=== PATIENT | female | born 1990 | race Caucasian/White ===

== ENCOUNTER 2024-01-26 21:24 | Emergency (ER) | payer BC, SELFPAY ==
[2024-01-26 21:32] VITALS: BP 111/76; PULSE 124; TEMP 36.9; O2SAT 96; BMI 47.9
--- NOTE | 2024-01-26 21:58 | ED.GENADULT ---
HPI - General Adult General Chief complaint: Fever Stated complaint: fever and high heart rate Time Seen by Provider: 01/26/24 21:57 History of Present Illness HPI narrative: Patient here with fever starting yesterday morning and higher heart rate. Coughing, congestion. Taking scheduled Tylenol. 34 weeks ,m 33-year-old woman presenting to the emergency department . Had been sick over the last week with head cold symptoms. Yesterday started to feel chills and measured temperature yesterday apparently to 99. Body aches. When she noticed today more was of persistently high heart rate 130s and that just has not drop below 100. This probably has her most concern. She did take acetaminophen about 2 hours prior to arrival here. 1000 mg. She is 34 weeks . Is not having any belly pain. She is not short of breath but is congested in the nasopharynx. No chest pain. No pleuritic pain. No dysuria. Does not have a history of tachycardia. Related Data Home Medications Medication Instructions Recorded Confirmed sertraline 100 mg tablet (Zoloft) 100 mg PO DAILY 01/26/24 02/04/24 cetirizine 10 mg capsule (Allergy 10 mg PO DAILY PRN 02/04/24 02/04/24 Relief (cetirizine)) docosahexaenoic acid 300 mg PO DAILY 02/04/24 02/04/24 Previous Rx's Medication Instructions Recorded acetaminophen 500 mg tablet 1,000 mg (2 x 500 mg) PO Q6H PRN 02/07/24 pain/fever #30 tabs docusate sodium 100 mg capsule 100 mg PO DAILY #30 caps 02/07/24 ibuprofen 600 mg tablet 600 mg PO Q6H PRN #30 tabs 02/07/24 labetalol 100 mg tablet 100 mg PO BID #60 tabs 02/07/24 Allergies Allergy/AdvReac Type Severity Reaction Status Date / Time No Known Drug Allergies Allergy Verified 02/05/24 04:43 Review of Systems Status of ROS: Reports: 6 or more systems reviewed and unremarkable except as noted in History and below [facility] Medical History (Updated 02/10/24 @ 00:02 by Mary Galan) Influenza A ?J10.1 - Influenza due to other identified influenza virus with other respiratory manifestations (ICD-10) Social History What is your current living situation?: I presently have a place to live Problems where you live: no known problems In the past 12 months, utilities in danger of being shut off: no In past 12 months, lack of transportation kept you from medical appts, meetings, work, or getting things needed for daily living: no In the past 12 mos, have been you worried that your food would run out before you had money to buy more?: never true In the past 12 mos, the food you bought just didn't last and you didn't have money to buy more?: never true Smoking Status: Never smoker How often do you have a drink containing alcohol: never AUDIT-C Alcohol total score: 0 How often does anyone, including family, friends and others, physically hurt you: never How often does anyone, including family, friends and others, insult or talk down to you: never How often does anyone, including family, friends and others, threaten you with harm: never How often does anyone, including family, friends and others, scream or curse at you: never Exam Narrative: Exam Narrative: Pleasant. Of good energy. Sounds rather congested in the nasopharynx. Cranial nerves 2-12 intact. Lungs are clear. Heartrate is elevated. Regular rhythm. Skin is warm and dry. Oropharynx is moist. Moving all extremities without difficulty. She is well-perfused. Abdomen is appropriately gravid soft and nontender Const: Vital Signs, click to edit/add: Vital Signs - 24 hr 01/26/24 21:32 01/26/24 23:49 Temperature 98.5 F Pulse Rate [Pulse Oximeter] 124 H 94 Respiratory Rate 16 Blood Pressure [Ri ght Upper Arm] 111/76 Pulse Oximetry 96 98 Oxygen Delivery Me thod Room Air Room Air Documenting provider has reviewed patient's vital signs: yes Course Vital Signs Vital signs: Initial Vital Signs Temperature 98.5 F 01/26/24 21:32 Temperature Source Temporal Artery Scan 01/26/24 21:32 Pulse Rate 124 H 01/26/24 21:32 Pulse Rhythm Regular 01/26/24 21:32 Blood Pressure 111/76 01/26/24 21:32 Blood Pressure Mean 87 01/26/24 21:32 Blood Pressure Position Sitting 01/26/24 21:32 Pulse Oximetry 96 01/26/24 21:32 Oxygen Delivery Method Room Air 01/26/24 21:32 Vital Signs Temperature 98.5 F 01/26/24 21:32 Pulse Rate 124 H 01/26/24 21:32 Blood Pressure 111/76 01/26/24 21:32 Pulse Oximetry 96 01/26/24 21:32 Oxygen Delivery Method Room Air 01/26/24 21:32 Temperature 98.5 F 01/26/24 21:32 Pulse Rate 94 01/26/24 23:49 Respiratory Rate 16 01/26/24 23:49 Blood Pressure 111/76 01/26/24 21:32 Pulse Oximetry 98 01/26/24 23:49 Oxygen Delivery Method Room Air 01/26/24 23:49 Medications Administered Medications: Discontinued Medications Generic Name Dose Route Start Last Admin Trade Name Freq PRN Reason Stop Dose Admin Sodium Chloride 1,000 mls @ 1,000 mls/hr 01/26/24 22:08 01/26/24 23:12 0.9 % Sodium Chloride 1000 Ml IV 01/26/24 23:07 Infused .Q1H ONE Infusion Medical Decision Making MDM Narrative Medical decision making narrative: I would suspect influenza given community prevalence. Like to provide IV hydration. Will screen with triple swab. Check urinalysis. Hopefully heart rate comes down a little bit. Does not appear to have any respiratory distress. Not fast enough probably to be a supraventricular tachycardia. I suspect this is more illness response. Will check EKG. IV placed. Written for L of normal saline EKG as below confirms normal sinus Indeed positive for influenza A. Urine looks normal for . Looks generally well on reassessment. Heart rate has improved a little bit; at least not tachycardic. Will need closer follow-up. Will be given Tamiflu. We discussed potential side effects. See patient discharge plan for further discussion Medical Records Medical records reviewed: Yes I reviewed the patient's medical records Lab Data Lab results reviewed: Yes I reviewed the patient's lab results Labs: Lab Results 01/26/24 01/26/24 Range/Units 21:31 22:18 Urine Color Yellow (Yellow) Urine Appearance Clear (Clear) Urine pH 6.5 (5.0-8.5) Ur Specific Baudette 1.010 (1.000-1.030) Urine Protein Negative (Negative) Urine Glucose (UA) Negative (Negative) Urine Ketones Negative (Negative) Urine Blood Trace-lysed A (Negative) Urine Nitrite Negative (Negative) Urine Bilirubin Negative (Negative) Urine Urobilinogen 0.2 (0.2-1.0) Ur Leukocyte Esterase Negative (Negative) Urine RBC 0-2 (0-2) Urine WBC 2-5 (0-5) Ur Squamous Epith Cells Few (None-Few) Urine Bacteria Moderate A (None) SARS-CoV-2 (PCR) Negative SARS-CoV-2 (Negative) Influenza Type A (PCR) POSITIVE PCR FLU A A (Negative) Influenza Type B (PCR) Negative PCR FLU B (Negative) RSV (PCR) Negative PCR RSV (Negative) ECG Data Attestation: I personally reviewed and interpreted this ECG as follows: (Sinus tachycardia at 106) Discharge Plan Discharge Clinical Impression: Influenza A, Sinus tachycardia Patient Disposition: Home w/ Parent or Adult Condition: Improved Additional Instructions: Focus on hydration. Can continue with acetaminophen. Return for persistent and increased shortness of breath, worsening chest pain, persistent heart rate over 120. Tamiflu and Zofran from [facility] Best wishes with the remainder of your . Prescriptions: No Action sertraline [Zoloft] 100 mg tablet 100 mg PO DAILY docosahexaenoic acid [ DHA] 300 mg PO DAILY Rx Instructions: 300MG orally; Allergy Relief (cetirizine) 10 mg capsule 10 mg PO DAILY PRN acetaminophen 500 mg Tablet 1,000 mg PO Q6H PRN (Reason: pain/fever) Qty: 30 0RF docusate sodium 100 mg Capsule 100 mg PO DAILY Qty: 30 0RF ibuprofen 600 mg Tablet 600 mg PO Q6H PRNQty: 30 0RF labetalol 100 mg Tablet 100 mg PO BID Qty: 60 0RF Follow Up/Referrals: Birdie Olivas MD [Primary Care Provider] - Stand Alone Forms: [employer] Info Instructions
[2024-01-26 22:19] LABS: PCR FLU A POSITIVE PCR FLU A (Negative); PCR FLU B Negative PCR FLU B (Negative); PCR RSV Negative PCR RSV (Negative); SARS PCR* Negative SARS-CoV-2 (Negative)
[2024-01-26 22:24] LABS: Appearance Urine Clear (Clear); Bilirubin Urine Negative (Negative); Blood Urine Trace-lysed (Negative); Color Urine Yellow (Yellow); Glucose Urine Negative (Negative); Ketones Urine Negative (Negative); Leukocyte Esterase Urine Negative (Negative); Nitrite Urine Negative (Negative); Protein Urine Negative (Negative); Urobilinogen Urine 0.2 (0.2-1.0); pH Urine 6.5 (5.0-8.5)
[2024-01-26] MEDS: 0.9 % SODIUM CHLORIDE 1000 ml 1,000 ML IV (22:28)
[2024-01-26 22:34] LABS: Bacteria Urine Moderate; RBC Urine 0-2 (0-2); Squamous Epithelial Cell Urine Few (None-Few)
[2024-01-26 23:49] VITALS: PULSE 94; RESP 16; O2SAT 98
== END 2024-01-26 23:50 | disposition home or self-care (01) ==
PROVIDERS: Emergency Provider Family Medicine; PCP Family Medicine
DX: J09.X2 Influenza due to identified novel influenza A virus with other respiratory manifestations (principal); R00.0 Tachycardia, unspecified
CPT/HCPCS: 81001; 87086; 87631; 93005; 99284; J7030

== ENCOUNTER 2024-02-04 14:02 | Inpatient (IN) | payer BC, SELFPAY ==
[2024-02-04] VITALS (55 sets, daily range): BP systolic 115–184; BP diastolic 56–93; PULSE 70–95; RESP 16; TEMP 37–37.3; BMI 48.2
[2024-02-04 11:43] LABS: Hematocrit 42.1 % (33.0-51.0); Mean Corpuscular HGB Conc 33 gm/dL (32-36); Mean Corpuscular Hemoglobin 28 pg (26-34); Mean Corpuscular Volume 83 fL (80-100); Platelet Count* 284 K/uL (140-440); Red Blood Count 5.06 m/uL (4.00-5.20); White Blood Count* 13.48 K/uL (4.50-11.00)
[2024-02-04 11:48] LABS: Slide Review Reflex No
[2024-02-04 11:53] LABS: Aspartate Amino Transferase* 23 U/L (12-35); Creatinine* 0.5 mg/dL (0.5-1.5); Estimated Glomerular Filt Rate 128 ml/min
[2024-02-04 11:53] LABS: Total Protein Urine 10 mg/dL
[2024-02-04 11:54] LABS: Alanine Aminotransferase* 19 U/L (4-35); Blood Urea Nitrogen* 9 mg/dL (5-24)
[2024-02-04 11:55] LABS: Creatinine Urine 51.9 mg/dL
[2024-02-04] MEDS: LABETALOL HCL 5 MG/ML inj IVP ×3 (12:45→18:48)
[2024-02-04] MEDS: LACTATED RINGERS 1000 ML 1,000 ML 75 ML IV ×2 (13:08→23:26)
[2024-02-04] MEDS: MAGNESIUM IV 4 GM/100 ML PIGGYBACK IVPB (13:09)
[2024-02-04] MEDS: CALCIUM CARBONATE 500 MG CHEW PO (13:24)
[2024-02-04] MEDS: BETAMETHASONE SOD PHOS/ACETATE 6 MG/ML ML 12 MG IM (13:32)
[2024-02-04] MEDS: MAGNESIUM Infusion 40 GM/1,000 ML IV.SOLN IVPB (13:41)
--- NOTE | 2024-02-04 14:39 | P.OBCN_ITS ---
OB - CN: HPI Date of Consult Date Seen: 02/04/24 Patient: Jackie Patient Consult date: 02/04/24 Requesting Physician: Birdie Olivas MD Primary Care Provider: Birdie Olivas MD Consult Narrative Narrative: The patient is a 33 year old G 1 P 0 woman at 35 weeks, 0 days gestation that was admitted to the Center on 02/04/24 for induction of labor for indication of preeclampsia with severe features. This is a new diagnosis, based on markedly elevated blood pressures noted at a clinic visit today at [facility]. Bre has been feeling well. She denies any headache, visual changes, or right upper quadrant pain. She reports an otherwise uncomplicated . At this time, she is maintained on magnesium sulfate for seizure prophylaxis. She is sitting in bed. She reports a normally grown fetus on ultrasound from today, measuring 5 lb and 10 oz per her report. History History 1 Elective abortions Para 0 Spontaneous abortions Hx # Term Pregnancies Ectopic pregnancies Hx # Pregnancies Multiple births Number of Living Children 0 PFSH PFSH Medical History (Updated 02/04/24 @ 14:47 by Sonia Grimm MD) Influenza A ?J10.1 - Influenza due to other identified influenza virus with other respiratory manifestations (ICD-10) Social History Smoking Status: Never smoker How often do you have a drink containing alcohol: never AUDIT-C Alcohol total score: 0 Meds Home Medications and Allergies Home Medications Medication Instructions Recorded Confirmed Type sertraline 100 mg tablet (Zoloft) 100 mg PO DAILY 01/26/24 02/04/24 History cetirizine 10 mg capsule (Allergy 10 mg PO DAILY PRN 02/04/24 02/04/24 History Relief (cetirizine)) docosahexaenoic acid PO 02/04/24 History Allergies Allergy/AdvReac Type Severity Reaction Status Date / Time No Known Drug Allergies Allergy Verified 01/26/24 21:31 OB - H&P: Exam Physical Exam: Vital signs: Pulse BP 88 144/88 H 02/04/24 14:37 02/04/24 14:37 Highest blood pressures since admission were 170s over 90s. She received labetalol for treatment. Her weight is 298 lb. Narrative: Physical exam: General: No acute distress Psych: Alert and oriented x3, full affect HEENT: Normocephalic, atraumatic Heart: Regular rate and rhythm, no murmur rub or gallop Lungs: Clear to auscultation bilaterally Abdomen: Soft, nontender, gravid, cephalic lie, no overhanging pannus Lower extremities: No edema or erythema Pelvic exam: Deferred to [facility] physician OB - Results Labs Labs: Short CBC 02/04/24 Range/Units 11:30 WBC 13.48 H (4.50-11.00) K/uL Hgb 14.0 (12.0-16.0) gm/dL Hct 42.1 (33.0-51.0) % Plt Count 284 (140-440) K/uL BMP 02/04/24 11:30 BUN 9 Creatinine 0.5 Liver Function 02/04/24 Range/Units 11:30 AST 23 (12-35) U/L ALT 19 (4-35) U/L Protein/ creatinine ratio= 0.10 OB - CN: A/P Assessment and Plan (1) Preeclampsia: Problem details: Severe gestational HTN Status: Acute Assessment and Plan: Normal HELLP labs. Reportedly unfavorable cervix. A agree with plan for betamethasone initiation. I agree with plan for cervical ripening followed by induction of labor. I recommend continuation of magnesium sulfate for seizure prophylaxis until 24 hours . I agree with continuous monitoring until . I agree with regularly reassessing HELLP labs throughout her intrapartum course. I support treating blood press ures of systolics 160 or greater, diastolics 110 or greater. A member of my practice will be on-call throughout her labor course and available for assistance
--- NOTE | 2024-02-04 15:34 | P.OBHP_ITS ---
OB - H&P: HPI Labor/Induction History of Present Illness Date Seen: 02/04/24 Chief Complaint: The patient is a 33 year old 1 para 0 at 35 weeks gestation by LMP and confirmed with 7 week US, who presents with high BP readings in clinic. While here for observation, BP in severe range and IOL recommended. Chief complaint: Maternity Indications for induction: pre-eclampsia Narrative: Bre Jacobo is a 33 year old at 35 weeks by LMP confirmed with 7 week US who presented from outpatient OB visit with elevated BP readings. While here BP were in severe range, preeclampsia labs were within normal limits, however given BP readings, magnesium and IV labetalol started and betamethasone given. has been otherwise uncomplicated. She has been getting regular BPPs for maternal obesity History of Present Dating criteria: based on LMP care: good care Ultrasounds: normal 1st trimester US and normal mid trimester US complications: preeclampsia Medical complications: none Labs Blood type: A (+) positive Rubella: immune RPR/VDLR: nonreactive GBS status: unknown (pending) HBsAG: negative Review of Systems Status of ROS: Reports: 6 or more systems reviewed and unremarkable except as noted in History and below Meds Home Medications and Allergies Home Medications Medication Instructions Recorded Confirmed Type sertraline 100 mg tablet (Zoloft) 100 mg PO DAILY 01/26/24 02/04/24 History cetirizine 10 mg capsule (Allergy 10 mg PO DAILY PRN 02/04/24 02/04/24 History Relief (cetirizine)) docosahexaenoic acid PO 02/04/24 History Allergies Allergy/AdvReac Type Severity Reaction Status Date / Time No Known Drug Allergies Allergy Verified 01/26/24 21:31 OB - H&P: Exam Physical Exam: Vital signs: Temp Pulse Resp BP 99.2 F 93 16 184/83 H 02/04/24 15:10 02/04/24 15:32 02/04/24 15:10 02/04/24 15:32 Constitutional: Constitutional: no acute distress Routine HEENT Exam: Head: Present atraumatic Eye: Present EOMI and PERRL ENT: Present mucous membranes moist Routine Neck Exam: Neck: Present full ROM Detailed Neck Exam: Thyroids: Thyroid: Present normal Routine Respiratory Exam: Respiratory: Present CTA bilaterally Routine Cardiovascular Exam: Cardiovascular: RRR Routine Exam: Perineum Description: Normal Detailed Labor and Delivery Exam: Patient Gravid: Yes Dilation (cm): 1 Effacement (%): 30 Cervix position: mid Consistency: medium Cervical ripeness score: 3 Fetus (Single): Station: -3 Amniotic Membrane Status: intact Heart Rate Baseline: 140 Monitor Accelerations: Present Monitor Decelerations: None Rosin Barrel Filler Variability: Moderate (6-25) Routine Extremities Exam: Comments: no edema OB - Results Labs Labs: Short CBC 02/04/24 Range/Units 11:30 WBC 13.48 H (4.50-11.00) K/uL Hgb 14.0 (12.0-16.0) gm/dL Hct 42.1 (33.0-51.0) % Plt Count 284 (140-440) K/uL BMP 02/04/24 11:30 BUN 9 Creatinine 0.5 Liver Function 02/04/24 Range/Units 11:30 AST 23 (12-35) U/L ALT 19 (4-35) U/L OB - Problem Based A/P Additional Plan (1) Preeclampsia: Problem details: Severe gestational HTN Status: Acute (2) 35 weeks gestation of : Status: Acute (3) Obesity: Status: Acute Plan Cook catheter placed with 60 mL in both intrauterine and intravaginal balloons. Pitocin at 1700 per protocol. BP management per protocol. IV magnesium. agent spa desk consult. Q6 hour preeclampsia labs. Betamethasone given. another dose in 24 hours if not delivered. GBS pending. Delivery/Labor/Induction Plan Plan: induction Induction method: Intracervical balloon catheter
[2024-02-04] MEDS: OXYTOCIN 30 unit/500 ML in NS 30 UNIT/500 ML BAG IVPB (17:01)
[2024-02-04 19:09] LABS: Hemoglobin* 13.8 gm/dL (12.0-16.0); Mean Corpuscular HGB Conc 33 gm/dL (32-36); Mean Corpuscular Hemoglobin 27 pg (26-34); Mean Corpuscular Volume 83 fL (80-100); Platelet Count* 299 K/uL (140-440); Red Blood Count 5.04 m/uL (4.00-5.20); White Blood Count* 18.63 K/uL (4.50-11.00)
[2024-02-04 19:12] LABS: Slide Review Reflex No
[2024-02-04 19:27] LABS: Alanine Aminotransferase* 21 U/L (4-35); Aspartate Amino Transferase* 23 U/L (12-35); Blood Urea Nitrogen* 8 mg/dL (5-24); Creatinine* 0.5 mg/dL (0.5-1.5); Est. Creatinine Clearance* 151.22; Estimated Glomerular Filt Rate 128 ml/min
[2024-02-04 19:37] LABS: Magnesium* 4.6 mg/dL (1.5-2.6)
[2024-02-04] MEDS: SERTRALINE 50 MG TABLET 100 MG PO (21:21)
[2024-02-04] MEDS: AMPICILLIN 2 GM in 0.9 % SODIUM CHLORIDE Mini-bag 100 ML IVPB (22:40)
[2024-02-05] VITALS (80 sets, daily range): BP systolic 99–176; BP diastolic 48–87; PULSE 77–101; RESP 12–16; TEMP 36.6–37.1; O2SAT 100
[2024-02-05 01:29] LABS: Hemoglobin* 13.3 gm/dL (12.0-16.0); Mean Corpuscular HGB Conc 33 gm/dL (32-36); Mean Corpuscular Hemoglobin 28 pg (26-34); Mean Corpuscular Volume 83 fL (80-100); Platelet Count* 276 K/uL (140-440); Red Blood Count 4.84 m/uL (4.00-5.20); White Blood Count* 17.81 K/uL (4.50-11.00)
[2024-02-05 01:39] LABS: Slide Review Reflex No
[2024-02-05 01:45] LABS: Alanine Aminotransferase* 21 U/L (4-35); Aspartate Amino Transferase* 22 U/L (12-35); Creatinine* 0.5 mg/dL (0.5-1.5); Est. Creatinine Clearance* 151.22; Estimated Glomerular Filt Rate 128 ml/min
[2024-02-05 01:46] LABS: Blood Urea Nitrogen* 6 mg/dL (5-24)
[2024-02-05 01:55] LABS: Magnesium* 5.1 mg/dL (1.5-2.6)
[2024-02-05] MEDS: AMPICILLIN 1 GM in 0.9 % SODIUM CHLORIDE Mini-bag 100 ML IVPB ×4 (02:14→14:25)
[2024-02-05 07:29] LABS: Hemoglobin* 13.2 gm/dL (12.0-16.0); Mean Corpuscular HGB Conc 33 gm/dL (32-36); Mean Corpuscular Hemoglobin 27 pg (26-34); Mean Corpuscular Volume 83 fL (80-100); Platelet Count* 299 K/uL (140-440); Red Blood Count 4.81 m/uL (4.00-5.20); White Blood Count* 19.47 K/uL (4.50-11.00)
[2024-02-05 07:41] LABS: Slide Review Reflex No
[2024-02-05 07:47] LABS: Alanine Aminotransferase* 18 U/L (4-35); Aspartate Amino Transferase* 20 U/L (12-35); Blood Urea Nitrogen* 5 mg/dL (5-24); Creatinine* 0.5 mg/dL (0.5-1.5); Est. Creatinine Clearance* 151.22; Estimated Glomerular Filt Rate 128 ml/min
--- NOTE | 2024-02-05 07:53 | P.OBPN_ITS ---
Subjective Time Seen by Provider: 07:53 Date Seen: 02/05/24 Narrative: Patient is comfortable, got some rest overnight. Objective Exam: Resting comfortably. Vital Signs: Last Vital Signs Temp 98.8 F 02/05/24 06:38 Pulse 101 H 02/05/24 07:37 Resp 16 02/04/24 19:48 BP 148/87 H 02/05/24 07:37 Pelvic Exam Dilation (cm): 5 Effacement (%): 50 Station: -2 Contractions Monitor mode: Internal Contraction Frequency: 3-4 Contraction pattern: Regular Pitocin Rate (mU/min): 11 Assessment Assessment: induction ongoing Station: -2 Amniotic Membrane Status: AROM (light meconium fluid) Status: Category l Heart Rate Baseline: 140 Skilled Nursing Variability: Moderate (6-25) Monitor Accelerations: Present Monitor Decelerations: None Maternal Status: Continuing Magnesium, preeclampsia monitoring per protocol. Plan Plan: - ongoing induction - continue mag - Updated Dr Antoine (Peds back up) and Dr. Whitman (OB)
[2024-02-05 07:54] LABS: Magnesium* 5.3 mg/dL (1.5-2.6)
[2024-02-05] MEDS: MAGNESIUM Infusion 40 GM/1,000 ML IV.SOLN IVPB (09:10)
[2024-02-05 09:21] LABS: Strep B DNA Probe Negative (Negative)
[2024-02-05 10:18] LABS: Strep B Susceptibility Needed? No
[2024-02-05] MEDS: LABETALOL HCL 5 MG/ML inj IVP ×2 (10:37→18:15)
[2024-02-05] MEDS: LACTATED RINGERS 1000 ML 1,000 ML 75 ML IV (10:48)
[2024-02-05 10:49] LABS: Platelet Count* 285 K/uL (140-440)
[2024-02-05] MEDS: ROPIVACAINE 0.2% 100 ml 100 ML 12 MG EPIDURAL (11:43)
[2024-02-05] MEDS: LIDOCAINE 2% (PF) 5 ML VIAL EPIDURAL (11:43)
[2024-02-05] MEDS: PHENYLEPHRINE 100 MCG/ML SYRINGE IVP ×5 (11:45→13:10)
--- NOTE | 2024-02-05 12:04 | PM.ANBPRC ---
[facility] Medical History (Updated 02/04/24 @ 15:43 by Davida Antoine MD) Influenza A ?J10.1 - Influenza due to other identified influenza virus with other respiratory manifestations (ICD-10) Social History What is your current living situation?: I presently have a place to live Problems where you live: no known problems In the past 12 months, utilities in danger of being shut off: no In past 12 months, lack of transportation kept you from medical appts, meetings, work, or getting things needed for daily living: no In the past 12 mos, have been you worried that your food would run out before you had money to buy more?: never true In the past 12 mos, the food you bought just didn't last and you didn't have money to buy more?: never true Smoking Status: Never smoker How often do you have a drink containing alcohol: never AUDIT-C Alcohol total score: 0 How often does anyone, including family, friends and others, physically hurt you: never How often does anyone, including family, friends and others, insult or talk down to you: never How often does anyone, including family, friends and others, threaten you with harm: never How often does anyone, including family, friends and others, scream or curse at you: never Meds Home Medications and Allergies Home Medications Medication Instructions Recorded Confirmed Type sertraline 100 mg tablet (Zoloft) 100 mg PO DAILY 01/26/24 02/04/24 History cetirizine 10 mg capsule (Allergy 10 mg PO DAILY PRN 02/04/24 02/04/24 History Relief (cetirizine)) docosahexaenoic acid 300 mg PO DAILY 02/04/24 02/04/24 History Allergies Allergy/AdvReac Type Severity Reaction Status Date / Time No Known Drug Allergies Allergy Verified 02/05/24 04:43 Results Labs Labs: Laboratory Results - last 24 hr 02/04/24 02/04/24 02/04/24 15:51 18:58 19:00 WBC 18.63 H RBC 5.04 Hgb 13.8 Hct 42.0 MCV 83 MCH 27 MCHC 33 Plt Count 299 BUN 8 Creatinine 0.5 Estimated Creat Clear 151.22 Estimated GFR 128 Magnesium 4.6 H* AST 23 ALT 21 Group B Strep DNA Negative Blood Type Antibody Screen 02/05/24 02/05/24 02/05/24 01:18 07:10 10:43 WBC 17.81 H 19.47 H RBC 4.84 4.81 Hgb 13.3 13.2 Hct 40.0 40.0 MCV 83 83 MCH 28 27 MCHC 33 33 Plt Count 276 299 285 BUN 6 5 Creatinine 0.5 0.5 Estimated Creat Clear 151.22 151.22 Estimated GFR 128 128 Magnesium 5.1 H* 5.3 H* AST 22 20 ALT 21 18 Group B Strep DNA Blood Type A Positive Antibody Screen NEGATIVE Vital Signs Vital Signs: Last Vital Signs Temp 98.2 F 02/05/24 12:01 Pulse 88 02/05/24 12:03 Resp 16 02/05/24 08:20 BP 117/59 L 02/05/24 12:03 Pulse Ox 100 02/05/24 11:59 Weight: 135.397 kg Height: 167.64 cm Anesthesia Procedures Epidural Insertion Patient Location: OB Start Time: 11:10 Stop Time: 12:10 Start Date: 02/05/24 Stop Date: 02/05/24 Reason for Block: procedure for pain Patient Position: sitting Performed By: Syeda Beltrán Preanesthetic Checklist: IV checked, risks and benefits discussed, monitors and equipment checked, pre-op evaluation, timeout performed and anesthesia consent Prep: chlorhexidine gluconate Monitoring: blood pressure monitoring, continuous pulse oximetry and heart rate Approach: midline Vertebral Space: lumbar (1-5) Epidural Technique: YANI saline Needle Type: Tuohy needle Injection Technique: continuous catheter (continuous catheter) Needle gauge: 17 Needle Length (cm): 10 cm Needle Insertion Depth (cm): 8 Catheter Gauge: 19 Catheter Type: multi-orifice Catheter at skin depth (cm): 15 Test Dose Result: negative and lidocaine 1.5% with epinephrine 1 to 200,000
[2024-02-05 13:01] LABS: Hematocrit 37.5 % (33.0-51.0); Hemoglobin* 12.4 gm/dL (12.0-16.0); Mean Corpuscular HGB Conc 33 gm/dL (32-36); Mean Corpuscular Hemoglobin 28 pg (26-34); Mean Corpuscular Volume 84 fL (80-100); Platelet Count* 290 K/uL (140-440); Red Blood Count 4.48 m/uL (4.00-5.20); White Blood Count* 19.72 K/uL (4.50-11.00)
[2024-02-05 13:15] LABS: Slide Review Reflex No
[2024-02-05 13:20] LABS: Alanine Aminotransferase* 18 U/L (4-35); Aspartate Amino Transferase* 20 U/L (12-35); Creatinine* 0.5 mg/dL (0.5-1.5); Est. Creatinine Clearance* 151.22; Estimated Glomerular Filt Rate 128 ml/min
[2024-02-05 13:21] LABS: Blood Urea Nitrogen* 5 mg/dL (5-24)
[2024-02-05 13:35] LABS: Magnesium* 5.5 mg/dL (1.5-2.6)
[2024-02-05] MEDS: BETAMETHASONE SOD PHOS/ACETATE 6 MG/ML ML 12 MG IM (14:03)
[2024-02-05] MEDS: CALCIUM CARBONATE 500 MG CHEW PO (14:25)
--- NOTE | 2024-02-05 15:50 | P.OBPN_ITS ---
Subjective Time Seen by Provider: 15:50 Date Seen: 02/05/24 Narrative: Patient is resting comfortably s/p epidural. Did lose 1 of her 2 IV access points and anesthesia came in to replace. Patient states she feels well. Objective Exam: Resting comfortably Vital Signs: Last Vital Signs Temp 97.9 F 02/05/24 15:01 Pulse 83 02/05/24 15:37 Resp 16 02/05/24 15:01 BP 140/82 H 02/05/24 15:37 Pulse Ox 100 02/05/24 11:59 Pelvic Exam Dilation (cm): 7 Effacement (%): 90 Station: -2 Contractions Monitor mode: Internal Contraction pattern: Regular Pitocin Rate (mU/min): 20 Assessment Assessment: induction ongoing Station: -2 Amniotic Membrane Status: AROM (light meconium fluid) Status: Category l Heart Rate Baseline: 140 Technician Terminal And Repeater Variability: Moderate (6-25) Monitor Accelerations: Present Monitor Decelerations: Early Labor Progress: Slow progress. MVUs have been adequate since 1:30 PM Maternal Status: Continues on magnesium for preeclampsia with severe features based on blood pre ssures. Received another dose of labetalol IV. Blood pressure has been improved since epidural placement. She has received her 2nd dose of betamethasone at 1330 today. She has been adequately treated with ampicillin for unknown GBS Plan Plan: - continue to titrate pitocin to maintain adequate MVUs - Continue preeclampsia monitoring/labs q6h/treating BP prn - Anticipate - will update Dr. Aurea Harris (OB) and Dr. Antoine (Peds back up)
[2024-02-05] MEDS: ONDANSETRON 2 MG/ML inj 4 MG IV (17:14)
[2024-02-05] MEDS: TRANEXAMIC ACID 100 MG/ML INJ 1000 MG IV (18:02)
[2024-02-05] MEDS: LIDOCAINE 1 % PF 30 ML INJECTION (18:18)
--- NOTE | 2024-02-05 18:40 | W.PM.OBVAGDE ---
OB Procedure Vag Delivery Mother Details Mother Details: The patient is a 33 year-old, 1, Para 0, admitted on 02/04/24 at 35.0 weeks gestation : 1 Para: 0 Weeks Gestation: 35.1 Admission Date: 02/04/24 Additional Details Amniotic Membrane Status: AROM Amniotic Membrane Rupture Date: 02/05/24 Amniotic Membrane Rupture Time: 07:18 Amniotic Membrane Fluid Description: Meconium Stained (light) Analgesia/Anesthesia Type: Epidural Waterbirth: No Pitcoin: Yes Intrapartal Events: Labor Induction Induction Method: Intracervical balloon catheter, per pitocin protocol and AROM Labor Onset: 13:30 Complete: 17:17 Pushin:46 Heart: heart tones during second stage were reassuring. Variable decels with contractions but recovered well. Delivery Details Delivery Date: 02/05/24 Delivery Time: 18:01 Route of delivery: Infant Gender: Female Viability: Alive; Heart Rate Present Position at Delivery: OA Delivery Details: Patient was admitted to labor and delivery with severe preeclampsia (based on elevated BPs) and started on magnesium. Cook catheter was placed for cervical ripening at 1530. Cook catheter fell out 2114. Pitocin was titrated and AROM/internals were placed. Patient progressed slowly but became complete at 1717. We initiated pushing at 1746. Patient pushed very well and delivered over intact perineum via spontaneous vaginal delivery. Nuchal cord was delivered through. was placed on maternal abdomen.? Cord was clamped and cut after a 30 second delay by FOB who was in attendance at delivery. Nose and mouth were bulb suctioned.? Baby was taken to warmer where Dr. Antoine was present for delivery given and light meconium fluid. weight 5lbs 6 oz. APGARS 7/8. 1 Minute Interval Total Score: 7 5 Minute Interval Total Score: 8 Additional Details Shoulder Dystocia: No Placenta Delivery Time: 18:07 Placental Delivery Description: Spontaneous Delivery repair: Vicryl Procedure Done: Global Blood Loss: 200 Laceration: Perineal - 1st Degree (repaired after administration of lidocaine and in usual fashion with 3-0 vicryl) Blood Loss Measurement Type: QBL Bakri Used: No Sponge/Need Count Correct: Yes Cord Vessel Description: 3 Vessels Event Summary Status: Mother and were stable after delivery. Disposition: no change
[2024-02-05 19:21] LABS: Hematocrit 38.3 % (33.0-51.0); Hemoglobin* 12.8 gm/dL (12.0-16.0); Mean Corpuscular HGB Conc 33 gm/dL (32-36); Mean Corpuscular Hemoglobin 28 pg (26-34); Mean Corpuscular Volume 83 fL (80-100); Platelet Count* 285 K/uL (140-440); Red Blood Count 4.62 m/uL (4.00-5.20); White Blood Count* 24.37 K/uL (4.50-11.00)
[2024-02-05 19:31] LABS: Slide Review Reflex No
[2024-02-05 19:36] LABS: Alanine Aminotransferase* 18 U/L (4-35); Aspartate Amino Transferase* 21 U/L (12-35); Creatinine* 0.5 mg/dL (0.5-1.5); Est. Creatinine Clearance* 151.22; Estimated Glomerular Filt Rate 128 ml/min
[2024-02-05 19:37] LABS: Blood Urea Nitrogen* 5 mg/dL (5-24)
[2024-02-05] MEDS: IBUPROFEN 600 MG TABLET PO (20:59)
[2024-02-05] MEDS: SERTRALINE 50 MG TABLET 100 MG PO (23:04)
[2024-02-05] MEDS: ACETAMINOPHEN 500 MG TABLET 1000 MG PO (23:05)
[2024-02-05] MEDS: LANOLIN CREAM 1 APPLIC TOPICAL (23:05)
[2024-02-06] VITALS (13 sets, daily range): BP systolic 104–137; BP diastolic 70–85; PULSE 69–83; RESP 12–18; TEMP 36.4–36.8; O2SAT 96–99
[2024-02-06 01:27] LABS: Hematocrit 37.4 % (33.0-51.0); Hemoglobin* 12.4 gm/dL (12.0-16.0); Mean Corpuscular HGB Conc 33 gm/dL (32-36); Mean Corpuscular Hemoglobin 28 pg (26-34); Mean Corpuscular Volume 84 fL (80-100); Platelet Count* 315 K/uL (140-440); Red Blood Count 4.47 m/uL (4.00-5.20)
[2024-02-06 01:41] LABS: Alanine Aminotransferase* 20 U/L (4-35); Aspartate Amino Transferase* 30 U/L (12-35); Creatinine* 0.6 mg/dL (0.5-1.5); Est. Creatinine Clearance* 126.01; Estimated Glomerular Filt Rate 122 ml/min
[2024-02-06 01:42] LABS: Blood Urea Nitrogen* 9 mg/dL (5-24)
[2024-02-06 01:44] LABS: Magnesium* 5.6 mg/dL (1.5-2.6)
[2024-02-06 01:45] LABS: Slide Review Reflex No; White Blood Count* 27.44 K/uL (4.50-11.00)
[2024-02-06 02:07] LABS: Rapid Plasma Reagin (RPR) Non Reactive (Non Reactive)
[2024-02-06] MEDS: IBUPROFEN 600 MG TABLET PO ×3 (03:09→21:02)
[2024-02-06] MEDS: MAGNESIUM Infusion 40 GM/1,000 ML IV.SOLN IVPB (03:35)
[2024-02-06] MEDS: LACTATED RINGERS 1000 ML 1,000 ML 75 ML IV ×2 (04:00→10:45)
[2024-02-06] MEDS: ACETAMINOPHEN 500 MG TABLET 1000 MG PO ×2 (06:28→13:00)
[2024-02-06 07:19] LABS: Hematocrit 34.3 % (33.0-51.0); Hemoglobin* 11.4 gm/dL (12.0-16.0); Mean Corpuscular HGB Conc 33 gm/dL (32-36); Mean Corpuscular Hemoglobin 28 pg (26-34); Mean Corpuscular Volume 84 fL (80-100); Platelet Count* 260 K/uL (140-440); Red Blood Count 4.08 m/uL (4.00-5.20); White Blood Count* 20.77 K/uL (4.50-11.00)
[2024-02-06 07:22] LABS: Slide Review Reflex No
[2024-02-06 07:36] LABS: Aspartate Amino Transferase* 20 U/L (12-35); Blood Urea Nitrogen* 8 mg/dL (5-24); Creatinine* 0.5 mg/dL (0.5-1.5); Est. Creatinine Clearance* 151.22; Estimated Glomerular Filt Rate 128 ml/min
[2024-02-06 07:37] LABS: Alanine Aminotransferase* 16 U/L (4-35)
[2024-02-06 07:45] LABS: Magnesium* 6.1 mg/dL (1.5-2.6)
[2024-02-06] MEDS: DOCUSATE SODIUM 100 MG CAPSULE PO (08:49)
[2024-02-06] MEDS: LABETALOL HCL 100 MG TABLET 200 MG PO (08:49)
--- NOTE | 2024-02-06 09:45 | PM.OBPNVD1 ---
OB - PN:Subj Subjective Date Seen: 02/06/24 Interval history: Bre is a pp day #1 from a at 35+1 weeks. IOL for severe preeclampsia. Blood pressures typically 130s/80s overnight. Will transition to PO labetalol this morning with goal <130/80. Denies headache, vision changes or abdominal pain. has slight edema in bilateral legs. Lochia within normal range. Is hoping to breastfed, baby not interested yet, so pumping and getting some colostrum. Patient comments OB post-: no complaints and pain well controlled [place] infant status: and doing well feeding status: exclusively (supplementing with formula to maintain glucose) OB - PN: Obj Exam Physical Exam: Vital signs: Temp Pulse Resp BP Pulse Ox O2 Del Method 97.8 F 78 16 129/84 96 Room Air 02/06/24 07:30 02/06/24 08:46 02/06/24 07:30 02/06/24 08:46 02/06/24 08:46 02/06/24 08:46 Narrative: General: Up in bed. No acute distress. Abdomen: soft and nontender with uterus 1 cm below umbilicus. Extremities with 1+ non pitting edema bialterally. OB - PN: Obj Data Labs Labs: Laboratory Results - last 24 hr 02/04/24 02/05/24 02/05/24 11:52 10:43 12:54 WBC 19.72 H RBC 4.48 Hgb 12.4 Hct 37.5 MCV 84 MCH 28 MCHC 33 Plt Count 285 290 BUN 5 Creatinine 0.5 Estimated Creat Clear 151.22 Estimated GFR 128 Magnesium 5.5 H* AST 20 ALT 18 RPR Screen Non Reactive 02/05/24 02/06/24 02/06/24 19:13 01:18 07:10 WBC 24.37 H 27.44 H* 20.77 H RBC 4.62 4.47 4.08 Hgb 12.8 12.4 11.4 L Hct 38.3 37.4 34.3 MCV 83 84 84 MCH 28 28 28 MCHC 33 33 33 Plt Count 285 315 260 BUN 5 9 8 Creatinine 0.5 0.6 0.5 Estimated Creat Clear 151.22 126.01 151.22 Estimated GFR 128 122 128 Magnesium 5.6 H* 6.1 H* AST 21 30 20 ALT 18 20 16 RPR Screen OB - PN: A/P Delivery Assessment and Plan (1) Preeclampsia: Problem details: Severe gestational HTN Status: Acute Assessment and Plan: Continue magnesium x24 hours post delivery. Transition to labetalol 200 mg PO BID. Adjust prn to goal <130/80. (2) 35 weeks gestation of : Status: Acute Assessment and Plan: s/p (3) Obesity: Status: Acute Plan Plan: routine care Comments: likely d/c tomorrow if doing well and BP adequately controlled.
[2024-02-06 13:14] LABS: Hematocrit 34.3 % (33.0-51.0); Hemoglobin* 11.1 gm/dL (12.0-16.0); Mean Corpuscular HGB Conc 32 gm/dL (32-36); Mean Corpuscular Hemoglobin 28 pg (26-34); Mean Corpuscular Volume 86 fL (80-100); Platelet Count* 279 K/uL (140-440); Red Blood Count 4.01 m/uL (4.00-5.20); White Blood Count* 20.21 K/uL (4.50-11.00)
[2024-02-06 13:17] LABS: Slide Review Reflex No
[2024-02-06 13:31] LABS: Alanine Aminotransferase* 18 U/L (4-35); Aspartate Amino Transferase* 22 U/L (12-35); Blood Urea Nitrogen* 11 mg/dL (5-24); Creatinine* 0.6 mg/dL (0.5-1.5); Est. Creatinine Clearance* 126.01; Estimated Glomerular Filt Rate 122 ml/min
[2024-02-06 13:45] LABS: Magnesium* 5.9 mg/dL (1.5-2.6)
[2024-02-06 19:22] LABS: Hematocrit 33.6 % (33.0-51.0); Hemoglobin* 10.9 gm/dL (12.0-16.0); Mean Corpuscular HGB Conc 32 gm/dL (32-36); Mean Corpuscular Hemoglobin 28 pg (26-34); Mean Corpuscular Volume 85 fL (80-100); Platelet Count* 283 K/uL (140-440); Red Blood Count 3.94 m/uL (4.00-5.20); White Blood Count* 18.06 K/uL (4.50-11.00)
--- NOTE | 2024-02-06 19:26 | PM.ANPOST ---
Post Anesthesia Note Post Anesthesia Note Patient seen: Inpatient Respiratory Status: adequate Cardiovascular Status: adequate Mental Status: baseline Pain: adequate Temp: baseline Anesthetic awareness: no Complications: none Follow care: none
[2024-02-06 19:30] LABS: Slide Review Reflex No
[2024-02-06 19:38] LABS: Aspartate Amino Transferase* 25 U/L (12-35); Creatinine* 0.6 mg/dL (0.5-1.5); Est. Creatinine Clearance* 126.01; Estimated Glomerular Filt Rate 122 ml/min
[2024-02-06 19:39] LABS: Alanine Aminotransferase* 19 U/L (4-35); Blood Urea Nitrogen* 13 mg/dL (5-24)
[2024-02-06 19:47] LABS: Magnesium* 4.9 mg/dL (1.5-2.6)
[2024-02-06] MEDS: SERTRALINE 50 MG TABLET 100 MG PO (21:02)
[2024-02-07 02:51] VITALS: BP 134/85; PULSE 97; RESP 18; TEMP 36.3; O2SAT 97
[2024-02-07 06:28] LABS: Hematocrit 34.1 % (33.0-51.0); Hemoglobin* 10.9 gm/dL (12.0-16.0); Mean Corpuscular HGB Conc 32 gm/dL (32-36); Mean Corpuscular Hemoglobin 28 pg (26-34); Mean Corpuscular Volume 86 fL (80-100); Platelet Count* 262 K/uL (140-440); Red Blood Count 3.97 m/uL (4.00-5.20); White Blood Count* 14.48 K/uL (4.50-11.00)
[2024-02-07 06:30] LABS: Slide Review Reflex No
[2024-02-07 06:53] LABS: Alanine Aminotransferase* 17 U/L (4-35); Aspartate Amino Transferase* 27 U/L (12-35); Blood Urea Nitrogen* 12 mg/dL (5-24); Creatinine* 0.6 mg/dL (0.5-1.5); Est. Creatinine Clearance* 126.01; Estimated Glomerular Filt Rate 122 ml/min
[2024-02-07 07:56] VITALS: BP 137/85; PULSE 77; RESP 18; TEMP 36.3; O2SAT 98
[2024-02-07] MEDS: DOCUSATE SODIUM 100 MG CAPSULE PO (08:58)
[2024-02-07] MEDS: LABETALOL HCL 100 MG TABLET PO (08:58)
--- NOTE | 2024-02-07 12:49 | P.DS_ITS ---
DS: Providers Provider Time Seen by Provider: 07:30 Date Seen: 02/07/24 Date of admission: 02/04/24 14:02 Primary care physician: Birdie Olivas MD Admitting Clinician: Davida Antoine MD Consults: DRUG PURCHASER, Dr. Sonia Grimm Attending Physician on discharge: Birdie Olivas MD Date of Discharge: 02/07/24 DS: Diagnosis Discharge Diagnosis (1) 35 weeks gestation of : Status: Acute Problem details: IOL for severe pre-eclampsia (2) Preeclampsia: Status: Acute Problem details: Severe gestational HTN Exam Narrative: Exam Narrative: General appearance: Well-appearing adult female. Alert, oriented and appropriate. Sitting up in hospital bed. HEENT: EOMI, no conjunctival injection or discharge. MMM. Neck: Supple. CV: RRR, no rubs, murmurs or extra heart sounds. Pulm: CTAB, no wheezes, rales or rhonchi. Abdomen: Soft, non-tender. Fundus palpated at the umbilicus. MSK: Moving all extremities. Ext: Warm and well-perfused. Trace LE edema. Skin: No rashes appreciated over exposed skin. Neuro: Grossly normal strength and sensation. No focal deficits. Psych: Normal affect. Const: Vital Signs, click to edit/add: Vital Signs - 24 hr 02/06/24 14:45 02/06/24 15:44 02/06/24 16:44 Temperature Pulse Rate [Pulse Oximeter] Respiratory Rate 16 Blood Pressure [Le ft Arm] 122/79 123/80 Pulse Oximetry Oxygen Delivery Me thod Room Air 02/06/24 17:50 02/06/24 20:46 02/06/24 23:37 Temperature 98.2 F 97.6 F Pulse Rate [Pulse Oximeter] 81 83 69 Respiratory Rate 16 16 18 Blood Pressure [Le ft Arm] 137/84 120/75 118/76 Pulse Oximetry 99 97 97 Oxygen Delivery Me thod Room Air Room Air Room Air 02/07/24 02:51 02/07/24 07:56 Temperature 97.4 F L 97.4 F L Pulse Rate [Pulse Oximeter] 97 77 Respiratory Rate 18 18 Blood Pressure [Le ft Arm] 134/85 137/85 Pulse Oximetry 97 98 Oxygen Delivery Me thod Room Air Room Air OB - DS: Summary Hospital Course Hospital Course: The patient is a 33 year old G 1 P 0 at 35+1 weeks gestation that was admitted to the Center on 02/04/24 for IOL for severe pre-eclampsia. Found to have elevated blood pressures in clinic, severe range when evaluated at L&D. Placed on IV magnesium for seizure prophylaxis. She had an uncomplicated vaginal delivery. She delivered a viable female . She is interested in , but difficulty latching. Currently bottle feeding pumped colostrum and 22kcal formula. the patient has done well. Blood pressures well-controlled on oral labetalol 100 mg twice daily. Plan for blood pressure check with Dr. Olivas at the time of follow-up. Peripartum Data Infant delivery method: Vaginal Laceration description: Perineal - 1st Degree complications: none Gender: Female Discharge Plan: Home Time Spent with Patient Time attestation: Total time spent providing and/or coordinating discharge services: Discharge Plan Discharge Disposition: Home, Self-Care Date of Admission: 02/04/24 14:02 Attending Provider on Discharge: Emily Leon Consulting Providers: Sonia Grimm Primary Care Provider: Birdie Olivas Condition: Stable Anticipated Discharge Date/Time: 02/07/24 08:16 Discharge Medications: New acetaminophen 500 mg Tablet 1,000 mg PO Q6H PRN (Reason: pain/fever) Qty: 30 0RF docusate sodium 100 mg Capsule 100 mg PO DAILY Qty: 30 0RF ibuprofen 600 mg Tablet 600 mg PO Q6H PRNQty: 30 0RF labetalol 100 mg Tablet 100 mg PO BID Qty: 60 0RF Continued sertraline [Zoloft] 100 mg tablet 100 mg PO DAILY docosahexaenoic acid [ DHA] 300 mg PO DAILY Rx Instructions: 300MG orally; Allergy Relief (cetirizine) 10 mg capsule 10 mg PO DAILY PRN Discharge Orders: Discharge Order (Routine); Ordered 02/07/24 Ordered By: Emily Leon Patient Education: Preeclampsia and Eclampsia After Delivery (GEN), OB Vaginal/Bottle Feeding Activity Level: Activity as Tolerated Discharge Diet: Regular Follow Up Appointments: Birdie Olivas MD [Primary Care Provider] - (BP check at appointment 02/08/24) Forms: [place] [facility] Info Instructions
== END 2024-02-07 12:32 | disposition home or self-care (01) | DRG 560 ==
LOC: OB OUT 14:03 → OB 14:03
PROVIDERS: Admitting Provider Family Medicine; PCP Family Medicine; Visit Provider Family Medicine
DX: O14.14 Severe pre-eclampsia complicating childbirth (principal); O13.4 Gestational [pregnancy-induced] hypertension without significant proteinuria, complicating childbirth; O60.14X0 Preterm labor third trimester with preterm delivery third trimester, not applicable or unspecified; Z3A.35 35 weeks gestation of pregnancy; Z37.0 Single live birth; O70.0 First degree perineal laceration during delivery; O99.214 Obesity complicating childbirth
CPT/HCPCS: 01967; 36415; 82565; 82570; 83735; 84156; 84450; 84460; 84520; 85018; 85027; 85049; 86592; 86850; 86900; 86901; 87081; 87653; 88307; A9270; J0290; J0702; J2001; J2371; J2405; J2795; J3475; J7120